=== PATIENT | male | born 1970 ===

== ENCOUNTER 2021-06-22 10:34 | Inpatient (IN) | payer SELFPAY ==
[~2021-06-22] VITALS: Ht 166.4 cm; Wt 54.1 kg
--- NOTE | 2021-06-22 11:09 | NUR ---
ATTEMPT TO CALL PT FROM LOBBY TO TRIAGE X 1. PT NIL X 1
[2021-06-22 13:23] LABS: BASOPHILS % (AUTO) 0 % (0-1); EOSINOPHILS % (AUTO) 0 % (1-7); LYMPHOCYTES % (AUTO) 6 % (22-44); MEAN CORPUSCULAR HEMOGLOBIN 34.4 pg (27.5-34.5); MEAN CORPUSCULAR HGB CONC 34.1 g/dL (33.2-36.2); MEAN PLATELET VOLUME 8.1 fL (7.4-10.4); MONOCYTES % (AUTO) 11 % (2-9); NEUTROPHILS % (AUTO) 83 % (42-75); PLATELET COUNT 222 x10^3/uL (130-400); RED BLOOD COUNT 4.46 x10^6/uL (4.38-5.82); RED CELL DISTRIBUTION WIDTH 12.8 % (9.4-14.8)
[2021-06-22 13:32] LABS: ALBUMIN 3.5 g/dL (3.4-5.0); ANION GAP 6 mmol/L (5-15); CALCIUM 10.1 mg/dL (8.5-10.1); CHLORIDE 100 mmol/L (98-107); CREATININE 0.83 mg/dL (0.7-1.3)
--- NOTE | 2021-06-22 16:08 | NUR ---
NAIL TECH: PT TO ROOM FROM LOBBY
--- NOTE | 2021-06-22 16:16 | NUR ---
PT W LARGE R JAW ABSCESS, PAIN 03/24, CALM, NAD. VSS. CALL [facility] IN REACH.
[2021-06-22] MEDS ORDERED: OMNIPAQUE 350 MG/ML, 100ML BOTTLE ONE (17:13)
[2021-06-22] MEDS ORDERED: SODIUM CHLORIDE FLUSH 10ML SYR IVF ONE (18:00)
[2021-06-22] MEDS ORDERED: CLINDAMYCIN PMX 600MG/50ML 50 ML IV ONE (18:00)
[2021-06-22] MEDS ORDERED: SODIUM CHLORIDE 0.9% 1,000 ML IV ONE ×2 (18:00→18:30)
--- NOTE | 2021-06-22 18:10 | NUR ---
PT LAST ORAL INTAKE WAS WATER AT 1500 AND PROTEIN SHAKE AT 0400.
[2021-06-22] MEDS: AMPICILLIN/SULBACTAM 3 GM in SODIUM CHLORIDE 0.9% 100 ML IV SCH (18:30)
[2021-06-22] MEDS ORDERED: ONDANSETRON 2MG/ML, 2ML IVPush PRN ×2 (18:30→22:00)
[2021-06-22] MEDS ORDERED: AMPICILLIN/SULBACTAM 3 GM in SODIUM CHLORIDE 0.9% 100 ML IV ONE (18:30)
[2021-06-22] MEDS: HEPARIN 5,000 UNITS/ML, 1ML SQ SCH (18:30)
[2021-06-22] MEDS ORDERED: ACETAMINOPHEN 325 MG TABLET PO PRN (18:30)
[2021-06-22] MEDS ORDERED: POLYETHYLENE GLYCOL 17 GM PACKET PO PRN (18:30)
[2021-06-22] MEDS ORDERED: morphine SULFATE 10 MG/ML, 1ML IVPush PRN (18:30)
[2021-06-22] MEDS ORDERED: BISACODYL 10 MG SUPP PR PRN (18:30)
[2021-06-22] MEDS ORDERED: SODIUM CHLORIDE FLUSH 10ML SYR IVF PRN (18:30)
--- NOTE | 2021-06-22 18:57 | NUR ---
PT RESTING AT THIS TIME. FRIEND AT BEDSIDE. ABX RUNNING. WILL HANG ADDITIONAL ABX WHEN FIRST ONE DONE.
--- NOTE | 2021-06-22 19:27 | NUR ---
REPORT GIVEN TO KARMEN BRIONES NO FURTHER QUESTIONS AT THIS TIME. PT TO BE TAKEN TO ROOM 377 SHORTLY.
[2021-06-22 19:43] VITALS: BP 104/70
[2021-06-22 19:58] VITALS: BP 101/64
[2021-06-22] MEDS ORDERED: LIDOCAINE/PF 1%-EPI 1:200K, 30 ML ONE (20:27)
[2021-06-22] MEDS ORDERED: LIDOCAINE 1%-EPI 1:100K, 30ML INFIL ONE (20:45)
[2021-06-22] MEDS ORDERED: FENTANYL PF 250 MCG/5ML ONE (20:59)
[2021-06-22] MEDS ORDERED: MIDAZOLAM 1 MG/ML, 2ML ONE (20:59)
[2021-06-22] MEDS ORDERED: ROCURONIUM 10 MG/ML,10ML ONE (21:01)
[2021-06-22] MEDS ORDERED: PROPOFOL 10 MG/ML, 20ML ONE (21:01)
[2021-06-22] MEDS ORDERED: ONDANSETRON 2MG/ML, 2ML ONE (21:01)
[2021-06-22] MEDS ORDERED: SUGAMMADEX 200 MG/2 ML IVPush ONE (21:01)
[2021-06-22] MEDS ORDERED: LABETALOL 5MG/ML, 20ML IV PRN (22:00)
[2021-06-22] MEDS ORDERED: MEPERIDINE/PF 25MG/0.5ML IVPush PRN (22:00)
[2021-06-22] MEDS ORDERED: FENTANYL PF 100 MCG/2ML IV PRN (22:00)
[2021-06-22] MEDS ORDERED: MIDAZOLAM 1 MG/ML, 2ML IV PRN (22:00)
[2021-06-22] MEDS ORDERED: PROMETHAZINE 25 MG/ML, 1ML IVPush PRN (22:00)
[2021-06-22] MEDS ORDERED: ALBUTEROL SULFATE 2.5 MG/3 ML NPPB PRN (22:00)
[2021-06-22] MEDS ORDERED: DIPHENHYDRAMINE 50 MG/ML, 1ML IVPush PRN ×2 (22:00)
[2021-06-22] MEDS ORDERED: HYDROmorphone 1 MG/ML, 1ML INJ IVPush PRN (22:00)
[2021-06-22] MEDS ORDERED: DIAZEPAM 5 MG/ML, 2ML IVPush PRN (22:00)
[2021-06-22] MEDS ORDERED: PROMETHAZINE 12.5 MG SUPP PR PRN (22:00)
[2021-06-22] MEDS ORDERED: hydrALAzine 20 MG/ML, 1ML IV PRN (22:00)
[2021-06-22] MEDS ORDERED: EPHEDRINE 50 MG/ML, 1ML IVPush PRN (22:00)
[2021-06-22] MEDS ORDERED: OXYcodone 5 MG/5 ML ORAL.SOL UDC PO PRN (22:00)
[2021-06-22] MEDS: SODIUM CHLORIDE 0.9% 1,000 ML IV SCH (22:38)
[2021-06-22 23:55] VITALS: BP 101/64
[2021-06-23] MEDS: AMPICILLIN/SULBACTAM 3 GM in SODIUM CHLORIDE 0.9% 100 ML IV SCH ×4 (00:37→18:38)
[2021-06-23 01:16] VITALS: BP 103/63
[2021-06-23] MEDS: HEPARIN 5,000 UNITS/ML, 1ML SQ SCH ×3 (02:46→18:38)
[2021-06-23 05:33] LABS: MEAN CORPUSCULAR HGB CONC 33.3 g/dL (33.2-36.2); MEAN PLATELET VOLUME 8.5 fL (7.4-10.4); PLATELET COUNT 205 x10^3/uL (130-400); RED BLOOD COUNT 3.99 x10^6/uL (4.38-5.82)
[2021-06-23 05:45] LABS: ANION GAP 4 mmol/L (5-15); CALCIUM 8.2 mg/dL (8.5-10.1); CHLORIDE 106 mmol/L (98-107)
[2021-06-23] MEDS: SODIUM CHLORIDE 0.9% 1,000 ML IV SCH ×2 (05:46→17:05)
[2021-06-23 05:48] LABS: CREATININE 0.58 mg/dL (0.7-1.3)
[2021-06-23 06:15] LABS: <PLATELET ESTIMATE> ADEQUATE; <PLT MORPHOLOGY> NORMAL PLT MORPH; ANISOCYTOSIS 1+; BAND#(MANUAL) 1.02 x10^3/uL; BANDS%(MANUAL) 7 % (0-7); LYMPH#(MANUAL) 1.46 x10^3/uL (1-3.4); LYMPHS% (MANUAL) 10 % (22-44); MONOS#(MANUAL) 1.02 x10^3/uL (0.3-2.7); MONOS% (MANUAL) 7 % (2-9); SEGS% (MANUAL) 76 % (42-75); TOXIC GRAN 1+
[2021-06-23 07:52] VITALS: BP 92/51
[2021-06-23 13:52] VITALS: BP 95/55
[2021-06-23 20:26] VITALS: BP 116/71
[2021-06-23] MEDS: CHLORHEXIDINE 15 ML UDC MM SCH (22:27)
[2021-06-24] MEDS: SODIUM CHLORIDE 0.9% 1,000 ML IV SCH ×2 (01:01→08:32)
[2021-06-24] MEDS: AMPICILLIN/SULBACTAM 3 GM in SODIUM CHLORIDE 0.9% 100 ML IV SCH ×3 (01:05→15:17)
[2021-06-24 01:11] VITALS: BP 99/68
[2021-06-24] MEDS: HEPARIN 5,000 UNITS/ML, 1ML SQ SCH ×2 (05:01→13:00)
[2021-06-24 08:22] VITALS: BP 115/62
[2021-06-24] MEDS: CHLORHEXIDINE 15 ML UDC MM SCH (08:32)
[2021-06-24 09:40] LABS: BASOPHILS % (AUTO) 1 % (0-1); EOSINOPHILS % (AUTO) 3 % (1-7); LYMPHOCYTES % (AUTO) 18 % (22-44); MEAN CORPUSCULAR HEMOGLOBIN 34.3 pg (27.5-34.5); MEAN CORPUSCULAR HGB CONC 33.5 g/dL (33.2-36.2); MEAN PLATELET VOLUME 8.4 fL (7.4-10.4); MONOCYTES % (AUTO) 10 % (2-9); NEUTROPHILS % (AUTO) 69 % (42-75); PLATELET COUNT 229 x10^3/uL (130-400); RED BLOOD COUNT 4.18 x10^6/uL (4.38-5.82); RED CELL DISTRIBUTION WIDTH 13.1 % (9.4-14.8)
[2021-06-24] MEDS ORDERED: AMOX1TAB64 PO (12:57)
[2021-06-24 13:58] VITALS: BP 107/81
== END 2021-06-24 16:04 | disposition home or self-care (01) | DRG 854 ==
LOC: ED 11:04 → EDIP 18:53 → 3N 19:40
PROVIDERS: ADMIT Internal Medicine; ATTEND Hospitalist
PROC: 0W950ZZ Drainage of Lower Jaw, Open Approach (ICD-10-PCS; 2021-06-22)
PROC: 0CDXXZ0 Extraction of Lower Tooth, Single, External Approach (ICD-10-PCS; principal; 2021-06-22 21:45)
DX: A41.9 Sepsis, unspecified organism (principal); E87.1 Hypo-osmolality and hyponatremia; K12.2 Cellulitis and abscess of mouth; D75.89 Other specified diseases of blood and blood-forming organs; F12.90 Cannabis use, unspecified, uncomplicated; F17.210 Nicotine dependence, cigarettes, uncomplicated; G43.909 Migraine, unspecified, not intractable, without status migrainosus; K02.9 Dental caries, unspecified; K04.6 Periapical abscess with sinus; Z79.899 Other long term (current) drug therapy
CPT/HCPCS: 36415; 70100; 70491; 80048; 82040; 82607; 83605; 85025; 87040; 87070; 87075; 87076; 87077; 87205; 87635; 99285; G0378; J0295; J1644; J2250; J2405; J2704; J3010; Q9967; J7030